=== PATIENT | female | born 1990 | race African-American/Black ===

== ENCOUNTER 2017-10-08 17:28 | Emergency (ER) | payer OTHER ==
[~2017-10-08] VITALS: Ht 162.6 cm; Wt 90.7 kg
[~2017-10-08 17:28] MED LIST: ACETAMINOPHEN-1 EAC1 PO; BACTRIM DS TAB1 EACH PO; CIPROFLOXACIN500 M1 PO; CLEOCIN HCL300 MG PO; DERMOPLAST SPRA56 ML; HIBICLENS120 ML TP; KEFLEX500 MG PO; LANOLIN56 GM; NOHOMEMEDICATIONS; NORCO 5-325 TA1 EACH PO; PERCOCET 5-3251 EACH PO; PRENATAL; TRAMADOL 50 MG50 MG PO; TUCKS MEDICATE1 EAC1
[2017-10-08 19:10] VITALS: BP 96/41
[2017-10-08] MEDS ORDERED: NAPROSYN500 MG PO (20:09)
[2017-10-08] MEDS ORDERED: HYDROCODONE-AP1 EAC6 PO (20:09)
[2017-10-08] MEDS ORDERED: DOXYCYCLINE 10100 MG PO (20:09)
== END 2017-10-08 20:21 | disposition home or self-care (01) ==
LOC: ER 17:28
DX: N61.1 Abscess of the breast and nipple (principal); L02.412 Cutaneous abscess of left axilla; L73.2 Hidradenitis suppurativa; Z88.6 Allergy status to analgesic agent

== ENCOUNTER 2018-08-09 17:44 | Emergency (ER) | payer OTHER ==
[~2018-08-09] VITALS: Ht 162.6 cm; Wt 81.7 kg
[~2018-08-09 17:44] MED LIST changes: +DOXYCYCLINE 10100 MG PO; +HYDROCODONE-AP1 EAC6 PO; +NAPROSYN500 MG PO
[2018-08-09] MEDS ORDERED: BACTRIM DS TAB1 EACH PO (19:54)
[2018-08-09 20:38] VITALS: BP 105/63
== END 2018-08-09 20:39 | disposition home or self-care (01) ==
LOC: ER 17:44
DX: L02.411 Cutaneous abscess of right axilla (principal); N61.1 Abscess of the breast and nipple; F17.210 Nicotine dependence, cigarettes, uncomplicated; Z88.6 Allergy status to analgesic agent

== ENCOUNTER 2018-11-28 13:54 | Emergency (ER) | payer OTHER ==
[~2018-11-28] VITALS: Ht 162.6 cm; Wt 77.1 kg
[2018-11-28 14:48] LABS: HEMATOCRIT 38.5 % (37.0-47.0); HEMOGLOBIN 12.7 gm/dL (12.0-15.0); MCH 27.6 pg (26.0-34.0); MCHC 32.9 g/dL (28.0-37.0); MCV 83.8 fL (80.0-100.0); RBC 4.6 mil/uL (4.20-5.00); RDW 13.5 % (10.5-14.5); WBC 12.4 thou/uL (4.0-11.0)
[2018-11-28 14:53] LABS: ANION GAP 9 mmol/L (7-16); BUN 7 mg/dL (7-18); CALCIUM 9.1 mg/dL (8.5-10.1); CHLORIDE 103 mmol/L (98-107); CO2 27 mmol/L (21-32); CREATININE 0.7 mg/dL (0.6-1.0); GLUCOSE 74 mg/dL (74-106); POTASSIUM 3.9 mmol/L (3.5-5.1); SODIUM 139 mmol/L (136-145)
[2018-11-28 14:59] LABS: ALBUMIN 2.9 g/dL (3.4-5.0); DIRECT BILIRUBIN < 0.1 mg/dL (<0.1-0.3); LIPASE 78 U/L (73-393); SGOT 10 U/L (15-37); SGPT 9 U/L (30-65); TOTAL BILIRUBIN 0.2 mg/dL (<0.1-1.0); TOTAL PROTEIN 7.8 g/dL (6.4-8.2)
[2018-11-28 15:19] LABS: URINE BILIRUBIN 1+ (Negative); URINE BLOOD NEGATIVE (Negative); URINE COLOR YELLOW; URINE GLUCOSE-RANDOM* NEGATIVE (Negative); URINE KETONES NEGATIVE (Negative); URINE NITRITE-REFLEX NEGATIVE (Negative); URINE PROTEIN (DIPSTICK) NEGATIVE (Negative); URINE SPECIFIC GRAVITY >= 1.030 (1.005-1.035); URINE UROBILINOGEN 0.2 E.U./dl (0.2-1.0)
[2018-11-28 15:22] LABS: URINE LEUKOCYTES-REFLEX 1+ (Negative)
[2018-11-28 15:23] LABS: ICTOTEST (BILI CONFIRMATORY) Positive (Negative); URINE CLARITY HAZY
[2018-11-28] MEDS ORDERED: BACTRIM DS TAB1 EACH PO (15:26)
[2018-11-28 15:28] LABS: SQUAMOUS >10 Many /LPF (0-3)
[2018-11-28 15:29] LABS: AMORPHOUS URATES Moderate /LPF (None Seen); BACTERIA-REFLEX None Seen /HPF (None Seen); CASTS None Seen /LPF (None Seen); URINE RBC 0-2 Rare /HPF (0-2); URINE WBC-REFLEX 6-15 Few /HPF (0-5)
[2018-11-28 15:36] VITALS: BP 98/42
== END 2018-11-28 15:36 | disposition home or self-care (01) ==
LOC: ER 13:54
PROVIDERS: Emergency Medicine
DX: L73.2 Hidradenitis suppurativa (principal); N95.1 Menopausal and female climacteric states; L02.411 Cutaneous abscess of right axilla; F17.210 Nicotine dependence, cigarettes, uncomplicated